=== PATIENT | female | born 1960 | race Caucasian/White ===

== ENCOUNTER 2017-09-28 08:22 | Day surgery (SDC) | payer MEDICARE, OTHER ==
[~2017-09-28] VITALS: Ht 157.5 cm; Wt 70.4 kg
[~2017-09-28 08:22] MED LIST: ALBU90OI6 INH; AMLO5 PO; ANACIN 400-321 EACH PO; ASPI81CH PO; ASPI81EC; ASPI81EC PO; ATARAX; BCOIRO PO; BENA20; BENA20 PO; BENAML10/5 PO; CALCA500CH; CALCAVITD PO; CALCIT950 PO; CEPH500 PO; CHOL10002 PO; CLIMARA; CYCL10; CYCL10 PO; CYPR4 PO; DIAZ5 PO; Desyrel50 MG PO; ELMIRON; ERGO50000 PO; ESTR1; ESTR25VT PV; ESTRTP; ESTRTP PV; ESTRTP VAG; Elmiron100 MG PO; FENO160 PO; Ferrous Sulfat324 MG PO; GABA100 PO; HYDACE5 PO; HYDACE7.5L PO; HYDCHL25 PO; HYDR1TAB94 PO; Hair, Skin & N1 EACH PO; IBUP800 PO; IRON150C PO; LIDO5TP TOP; LISI5 PO; MECL25 PO; METF500 PO; METF500C PO; METO25ER PO; METO50ER PO; MULVIT; MULVITMINE PO; Macrobid 100 M100 MG PO; NAPR500 PO; NIAC250ER PO; NIAC500 PO; Naprosyn500 MG PO; Norco 5-325 Ta1 EACH PO; OMEG1CAP30 PO; ONDA4 PO; ONDA4ODT MM; OXYACE7.5T PO; PRED10 PO; PROM25 PO; Pyridium100 MG PO; RANI150 PO; ROSU10TA PO; RXCYCL10 PO; RXHYDACE PO; RXONDA4ODT MM; SLOW FE142 MG PO; TRAZ50; TRAZ50 PO; ULTRACET; Ultram50 MG PO; VAGIFEM10 MCG; VAGIFEM10 MCG VG; VITAMIN D31 ML PO
[2018-01-25] MEDS ORDERED: Lotensin Hct 21 EAC1 PO (21:31)
[2018-01-25] MEDS ORDERED: Aspirin EC81 MG PO (21:32)
[2018-01-25] MEDS ORDERED: VITAMIN D22000 UNIT PO (21:33)
[2018-01-25] MEDS ORDERED: VITAMIN D50000 UNIT PO (21:33)
[2018-01-25] MEDS ORDERED: CEPH500 PO (21:35)
[2018-01-26] MEDS ORDERED: Zofran Odt4 MG SL (01:04)
[2018-03-27] MEDS ORDERED: METF500C PO (10:35)
[2018-03-27] MEDS ORDERED: FENO160 (10:35)
[2018-03-27] MEDS ORDERED: BENHYD1012 ×2 (10:36→10:37)
[2018-07-15] MEDS ORDERED: BENA20 PO (08:41)
[2018-07-15] MEDS ORDERED: Elemental Calc600 MG PO (08:43)
[2018-07-15] MEDS ORDERED: Ferrous Sulfat325 MG PO (08:45)
[2018-07-15] MEDS ORDERED: ACET500 PO (08:48)
[2018-07-15] MEDS ORDERED: Dyazide 37.5-21 EACH PO (08:50)
[2018-07-15] MEDS ORDERED: Mobic15 MG PO (08:51)
[2018-07-15] MEDS ORDERED: CALCIUM PO (08:55)
[2018-07-15] MEDS ORDERED: SLOW MAG PO (08:55)
== END 2017-09-28 14:10 | disposition home or self-care (01) ==
LOC: ORSCSDS 08:22
PROVIDERS: Podiatrist Foot & Ankle Surgery
PROC: 0SGQ04Z Fusion of Left Toe Phalangeal Joint with Internal Fixation Device, Open Approach (ICD-10-PCS; principal; 2017-09-28 10:40)
PROC: 0L8W0ZZ Division of Left Foot Tendon, Open Approach (ICD-10-PCS; principal; 2017-09-28 10:40)
DX: M20.40 Other hammer toe(s) (acquired), unspecified foot (principal); I10 Essential (primary) hypertension; E11.9 Type 2 diabetes mellitus without complications; Z79.899 Other long term (current) drug therapy; Z79.82 Long term (current) use of aspirin
CPT/HCPCS: 82947; C1713; J0171; J1100; J2250; J2405; J2765; J3010; J3370; J7120

== ENCOUNTER → 2018-01-24 | Outpatient (CLI) | payer MEDICARE, OTHER ==
[~2018-01-24] MED LIST changes: +Aspirin EC81 MG; +Lotensin Hct 21 EAC1; +VITAMIN D22000 UNIT PO; +VITAMIN D50000 UNIT PO; +Zofran Odt4 MG SL
[2018-01-24 11:18] LABS: Hematocrit 33.1 % (33.0-51.0); Hemoglobin 11.4 g/dL (11.5-16.0); Mean Corpuscular HGB 30.2 pg (26.0-34.0); Mean Corpuscular HGB Conc 34.4 g/dL (31.5-36.5); Mean Corpuscular Volume 88 fL (80-100); Mean Platelet Volume 9.7 fL (9.1-12.4); Platelet Count 392 K/mm3 (150-400); RDW Coefficient Variation 12.2 % (11.7-14.2); RDW Standard Deviation 39.5 fL (35.1-46.3); Red Blood Cell Count 3.77 M/mm3 (3.80-5.20); White Blood Cell Count 6.34 K/mm3 (4.00-11.30)
[2018-01-24 11:21] LABS: Bun/Creatinine Ratio 12.5 (12.0-20.0); Calcium, Blood 9.3 mg/dL (8.5-10.1); Creatinine, Blood 1.2 mg/dL (0.40-1.00); Potassium, Blood 3.6 mmol/L (3.5-5.5)
== END ==
LOC: LAB SHORT 11:09 → LAB EV 11:09
PROVIDERS: Nurse Practitioner Family
DX: N12 Tubulo-interstitial nephritis, not specified as acute or chronic (principal); R10.9 Unspecified abdominal pain
CPT/HCPCS: 80048; 83605; 85027; 87086

== ENCOUNTER → 2018-01-28 | Outpatient (CLI) | payer MEDICARE, OTHER ==
[2018-01-29 09:25] LABS: Adenovirus F 40/41 Not Detected (NOT DETECT); Astrovirus Not Detected (NOT DETECT); Campylobacter Sp Not Detected (NOT DETECT); Cryptosporidium Not Detected (NOT DETECT); Cyclospora Cayetanensis Not Detected (NOT DETECT); E. Coli O157 Not Detected (NOT DETECT); Entamoeba Histolytica Not Detected (NOT DETECT); Enteroaggregative E. coli-EAEC Not Detected (NOT DETECT); Enteropathogenic E. coli-EPEC Not Detected (NOT DETECT); Enterotoxigenic E. coli-ETEC Not Detected (NOT DETECT); Giardia Lamblia Not Detected (NOT DETECT); Norovirus GI/GII Not Detected (NOT DETECT); Plesiomonas Shigelloides Not Detected (NOT DETECT); Rotavirus A Not Detected (NOT DETECT); Salmonella Sp Not Detected (NOT DETECT); Sapovirus Not Detected (NOT DETECT); Shiga Toxin-prod E. coli-STEC Not Detected (NOT DETECT); Shigella/Enteroin E. coli-EIEC Not Detected (NOT DETECT); Vibrio Cholerae Not Detected (NOT DETECT); Vibrio Sp Not Detected (NOT DETECT); Yersinia Enterocolitica Not Detected (NOT DETECT)
== END ==
LOC: LAB EV 19:40
PROVIDERS: Nurse Practitioner Family
DX: R19.7 Diarrhea, unspecified (principal)
CPT/HCPCS: 87507

== ENCOUNTER 2018-02-04 05:48 | Emergency (ER) | payer MEDICARE, OTHER ==
[~2018-02-04] VITALS: Ht 157.5 cm; Wt 66.7 kg
[~2018-02-04 05:48] MED LIST changes: -Aspirin EC81 MG; +Aspirin EC81 MG PO; -Lotensin Hct 21 EAC1; +Lotensin Hct 21 EAC1 PO
[2018-02-04] MEDS ORDERED: Calcium Citrat250 MG PO (06:40)
[2018-02-04] MEDS ORDERED: [UNRECOGNIZED DRUG - OTHER] PO (06:42)
[2018-02-04] MEDS ORDERED: VAGIFEM10 MCG VAG (06:47)
[2018-02-04] MEDS ORDERED: TRAM50 PO (06:49)
[2018-02-04 07:31] LABS: Source, Urine Clean Catch
[2018-02-04 07:40] LABS: Bilirubin, Urine Neg (Neg); Blood, Urine 2+ (Neg); Glucose Qualitative, Urine Neg (Neg); Ketones, Urine Neg (Neg); Leukocyte Esterase, Urine 1+ (Neg); Nitrite, Urine Pos (Neg); Protein, Urine Neg (Neg); Urobilinogen, Urine NORM (Normal); pH, Urine 6.5 (5.0-8.0)
[2018-02-04 07:49] LABS: Appearance, Urine Clear (Clear); Color, Urine Yellow (P-Yellow)
[2018-02-04 07:53] LABS: Bacteria Few /hpf; Squamous Epithelial Cells Mod /hpf (Few)
[2018-02-04 07:55] LABS: Hyaline Casts Rare /lpf (0-2)
[2018-02-04 08:08] LABS: BASOPHILS ABSOLUTE AUTO 0.03 K/mm3 (0.00-0.23); BASOPHILS PERCENT AUTO 1 % (0-2); EOSINOPHILS ABSOLUTE AUTO 0.03 K/mm3 (0.00-0.68); EOSINOPHILS PERCENT AUTO 1 % (0-6); Hematocrit 30.8 % (33.0-51.0); Hemoglobin 10.5 g/dL (11.5-16.0); IMMATURE GRAN ABSOLUTE AUTO 0.01 K/mm3 (0.00-0.10); IMMATURE GRAN PERCENT AUTO 0 % (0-1); LYMPHOCYTES ABSOLUTE AUTO 1.63 K/mm3 (0.84-5.20); LYMPHOCYTES PERCENT AUTO 28 % (21-46); MONOCYTES PERCENT AUTO 9 % (4-13); Mean Corpuscular HGB 30.1 pg (26.0-34.0); Mean Corpuscular HGB Conc 34.1 g/dL (31.5-36.5); Mean Corpuscular Volume 88 fL (80-100); NEUTROPHILS ABSOLUTE AUTO 3.67 K/mm3 (1.96-9.15); NEUTROPHILS PERCENT AUTO 63 % (41-73); Platelet Count 294 K/mm3 (150-400); RDW Coefficient Variation 12.3 % (11.7-14.2); RDW Standard Deviation 39.4 fL (35.1-46.3); Red Blood Cell Count 3.49 M/mm3 (3.80-5.20); White Blood Cell Count 5.87 K/mm3 (4.00-11.30)
[2018-02-04 08:24] LABS: Alanine Aminotransfer (ALT/SGP 22 U/L (12-78); Albumin, Blood 3.4 g/dL (3.4-5.0); Alk Phos 104 U/L (50-136); Anion Gap 9 mmol/L (6-16); Aspartate Aminotrans (AST/SGOT 17 U/L (12-37); Bilirubin, Total 0.3 mg/dL (0.1-1.0); Blood Urea Nitrogen 18 mg/dL (8-24); Bun/Creatinine Ratio 19.5 (12.0-20.0); CO2, Blood 27 mmol/L (21-32); Calcium, Blood 8.9 mg/dL (8.5-10.1); Chloride, Blood 105 mmol/L (98-108); Creatinine, Blood 0.93 mg/dL (0.40-1.00); Globulin, Blood 3.5 g/dL (2.2-4.0); Glomerular Filtration Rate >60 (60-); Glucose, Blood 102 mg/dL (70-99); Potassium, Blood 3.7 mmol/L (3.5-5.5); Sodium, Blood 141 mmol/L (136-145); Total Protein, Blood 6.9 g/dL (6.4-8.2)
[2018-02-04 09:43] LABS: Source, Urine Catheter
[2018-02-04 09:57] LABS: Bilirubin, Urine Neg (Neg); Blood, Urine 1+ (Neg); Glucose Qualitative, Urine Neg (Neg); Ketones, Urine Neg (Neg); Leukocyte Esterase, Urine Neg (Neg); Nitrite, Urine Neg (Neg); Protein, Urine Neg (Neg); Specific Gravity, Urine 1.005 (1.003-1.022); Urobilinogen, Urine NORM (Normal)
[2018-02-04 10:08] LABS: Appearance, Urine Clear (Clear); Color, Urine Pale Yellow (P-Yellow)
[2018-02-04 10:12] LABS: White Blood Cells, Urine 0-2 /hpf (0-5)
[2018-02-04 10:13] LABS: Bacteria Rare /hpf; Squamous Epithelial Cells Rare /hpf (Few)
== END 2018-02-04 10:52 | disposition home or self-care (01) ==
LOC: ER 05:48
PROVIDERS: Emergency Medicine
DX: K85.90 Acute pancreatitis without necrosis or infection, unspecified (principal); I10 Essential (primary) hypertension; E78.00 Pure hypercholesterolemia, unspecified; Z79.899 Other long term (current) drug therapy
CPT/HCPCS: 36415; 51701; 80053; 81001; 83690; 85025; 87086; 96361; 96374; 99283; J2550; J7120

== ENCOUNTER 2018-02-09 15:00 | Emergency (ER) | payer MEDICARE, OTHER ==
[~2018-02-09] VITALS: Ht 157.5 cm; Wt 68.0 kg
[~2018-02-09 15:00] MED LIST changes: +Calcium Citrat250 MG PO; +TRAM50 PO; +VAGIFEM10 MCG VAG; +[UNRECOGNIZED DRUG - OTHER] PO
== END 2018-02-09 18:04 | disposition home or self-care (01) ==
LOC: ER 15:00
DX: R11.2 Nausea with vomiting, unspecified (principal); R10.9 Unspecified abdominal pain; I10 Essential (primary) hypertension; E11.9 Type 2 diabetes mellitus without complications; E78.00 Pure hypercholesterolemia, unspecified; Z88.2 Allergy status to sulfonamides; Z88.5 Allergy status to narcotic agent; Z88.0 Allergy status to penicillin; Z91.048 Other nonmedicinal substance allergy status; Z91.02 Food additives allergy status; Z88.8 Allergy status to other drugs, medicaments and biological substances; Z88.1 Allergy status to other antibiotic agents; Z91.010 Allergy to peanuts; Z79.899 Other long term (current) drug therapy; Z79.82 Long term (current) use of aspirin
CPT/HCPCS: 36415; 96361; 96374; 96375; 99283; J1885; J2405; J7030

== ENCOUNTER 2018-02-11 13:19 | Day surgery (SDC) | payer MEDICARE, OTHER | END 2018-02-11 15:42 | disposition home or self-care (01) | LOC: ATC 13:19 | DX: R11.2 Nausea with vomiting, unspecified (principal); I10 Essential (primary) hypertension; E78.00 Pure hypercholesterolemia, unspecified; E11.9 Type 2 diabetes mellitus without complications | CPT/HCPCS: 96360; J7030 ==

== ENCOUNTER 2018-02-12 00:29 | Day surgery (SDC) | payer MEDICARE, OTHER ==
[2018-02-13] MEDS ORDERED: HYDCHL25 PO (14:09)
== END 2018-02-12 15:07 | disposition home or self-care (01) ==
LOC: ATC 00:29
DX: R11.2 Nausea with vomiting, unspecified (principal); I10 Essential (primary) hypertension; E78.00 Pure hypercholesterolemia, unspecified; E11.9 Type 2 diabetes mellitus without complications
CPT/HCPCS: 96360; J7030

== ENCOUNTER 2018-02-13 00:26 | Day surgery (SDC) | payer MEDICARE, OTHER ==
[2018-02-13] MEDS ORDERED: HYDCHL25 PO (14:09)
== END 2018-02-13 15:25 | disposition home or self-care (01) ==
LOC: ATC 00:26
DX: R11.2 Nausea with vomiting, unspecified (principal); I10 Essential (primary) hypertension; E11.9 Type 2 diabetes mellitus without complications; E78.00 Pure hypercholesterolemia, unspecified
CPT/HCPCS: 96360; J7030

== ENCOUNTER → 2018-02-14 | Outpatient (CLI) | payer MEDICARE, OTHER ==
[2018-02-15 11:27] LABS: Antinuclear Antibody Screen Negative (Negative)
[2018-02-15 14:48] LABS: Rheumatoid Factor, Serum Negative (Negative)
== END | disposition home or self-care (01) ==
LOC: LAB EV 16:50 → LAB SHORT 16:50
PROVIDERS: Family Medicine
DX: M33.20 Polymyositis, organ involvement unspecified (principal); M19.90 Unspecified osteoarthritis, unspecified site
CPT/HCPCS: 82550; 85651; 86038; 86140; 86430

== ENCOUNTER → 2018-03-07 | Outpatient (CLI) | payer MEDICARE, OTHER | END | disposition home or self-care (01) | LOC: LAB EV 11:59 → LAB SHORT 11:59 | DX: N39.0 Urinary tract infection, site not specified (principal) | CPT/HCPCS: 87086 ==

== ENCOUNTER → 2018-09-26 | Outpatient (CLI) | payer MEDICARE, OTHER ==
[~2018-09-26] MED LIST changes: +ACET500 PO; +BENHYD1012; +CALCIUM PO; +Dyazide 37.5-21 EACH PO; +Elemental Calc600 MG PO; +FENO160; +Ferrous Sulfat325 MG PO; +Mobic15 MG PO; +SLOW MAG PO
== END ==
LOC: LAB SHORT 14:02 → LAB EV 14:02
DX: N39.0 Urinary tract infection, site not specified (principal)
CPT/HCPCS: 87086

== ENCOUNTER → 2018-10-05 | Outpatient (CLI) | payer MEDICARE, OTHER ==
[2018-10-05 13:28] LABS: BASOPHILS ABSOLUTE AUTO 0.03 K/mm3 (0.00-0.23); BASOPHILS PERCENT AUTO 1 % (0-2); EOSINOPHILS ABSOLUTE AUTO 0.02 K/mm3 (0.00-0.68); EOSINOPHILS PERCENT AUTO 0 % (0-6); Hematocrit 32.3 % (33.0-51.0); Hemoglobin 10.9 g/dL (11.5-16.0); IMMATURE GRAN ABSOLUTE AUTO 0.01 K/mm3 (0.00-0.10); IMMATURE GRAN PERCENT AUTO 0 % (0-1); LYMPHOCYTES ABSOLUTE AUTO 2.08 K/mm3 (0.84-5.20); LYMPHOCYTES PERCENT AUTO 36 % (21-46); MONOCYTES ABSOLUTE AUTO 0.46 K/mm3 (0.16-1.47); MONOCYTES PERCENT AUTO 8 % (4-13); Mean Corpuscular HGB 29.6 pg (26.0-34.0); Mean Corpuscular HGB Conc 33.7 g/dL (31.5-36.5); Mean Corpuscular Volume 88 fL (80-100); Mean Platelet Volume 9.6 fL (9.1-12.4); NEUTROPHILS ABSOLUTE AUTO 3.13 K/mm3 (1.96-9.15); NEUTROPHILS PERCENT AUTO 55 % (41-73); Platelet Count 329 K/mm3 (150-400); RDW Coefficient Variation 11.6 % (11.7-14.2); RDW Standard Deviation 37.1 fL (35.1-46.3); Red Blood Cell Count 3.68 M/mm3 (3.80-5.20); White Blood Cell Count 5.73 K/mm3 (4.00-11.30)
[2018-10-05 13:41] LABS: Albumin, Blood 3.4 g/dL (3.4-5.0); Albumin/Globulin Ratio 0.9 (0.8-1.8); Bilirubin, Total 0.4 mg/dL (0.1-1.0); Calcium, Blood 8.7 mg/dL (8.5-10.1); Magnesium, Blood 1.5 mg/dL (1.6-2.4); Potassium, Blood 3.8 mmol/L (3.5-5.5); Total Protein, Blood 7.4 g/dL (6.4-8.2)
[2018-10-05 15:25] LABS: Bacteria Not Seen /hpf; Red Blood Cells, Urine Not Seen /hpf (0-2); Squamous Epithelial Cells Few /hpf (Few); Transitional Epithelial Cells Few /hpf (0-Rare); White Blood Cells, Urine Not Seen /hpf (0-5)
[2018-10-05 16:14] LABS: Percent Saturation 8.6 % (15.0-50.0)
== END | disposition home or self-care (01) ==
LOC: LAB EV 13:23 → LAB SHORT 13:23
PROVIDERS: General Practice
DX: D50.9 Iron deficiency anemia, unspecified (principal); E61.2 Magnesium deficiency; R53.81 Other malaise; R30.0 Dysuria
CPT/HCPCS: 80053; 81015; 82728; 83540; 83550; 83735; 85025; 87086

== ENCOUNTER 2019-07-24 10:49 | Emergency (ER) | payer MEDICARE, OTHER ==
[~2019-07-24] VITALS: Ht 157.5 cm; Wt 63.5 kg
[2019-07-24] MEDS ORDERED: HYDR1TAB94 PO (12:11)
== END 2019-07-24 12:25 | disposition home or self-care (01) ==
LOC: ER 10:49
DX: M76.822 Posterior tibial tendinitis, left leg (principal); I10 Essential (primary) hypertension; E78.00 Pure hypercholesterolemia, unspecified; Z88.0 Allergy status to penicillin; Z88.2 Allergy status to sulfonamides; Z88.5 Allergy status to narcotic agent; Z79.899 Other long term (current) drug therapy
CPT/HCPCS: 73700; 99283-25

== ENCOUNTER 2020-05-21 06:10 | Day surgery (SDC) | payer MEDICARE, OTHER ==
[~2020-05-21] VITALS: Ht 160 cm; Wt 65.6 kg
[~2020-05-21 06:10] MED LIST changes: +FOLI1 PO; +METTREX2.5 PO; +MYRBETRIQ25 MG PO
[2020-05-21] MEDS ORDERED: ESCI10 PO (07:16)
== END 2020-05-21 10:07 | disposition home or self-care (01) ==
LOC: ORSCSDS 06:10
PROVIDERS: Podiatrist Foot & Ankle Surgery
PROC: 0QBP0ZZ Excision of Left Metatarsal, Open Approach (ICD-10-PCS; principal; 2020-05-21 07:30)
PROC: 0QSP04Z Reposition Left Metatarsal with Internal Fixation Device, Open Approach (ICD-10-PCS; principal; 2020-05-21 07:30)
DX: M20.12 Hallux valgus (acquired), left foot (principal); M21.612 Bunion of left foot; M20.62 Acquired deformities of toe(s), unspecified, left foot; I10 Essential (primary) hypertension; E78.5 Hyperlipidemia, unspecified; E11.9 Type 2 diabetes mellitus without complications; Z79.84 Long term (current) use of oral hypoglycemic drugs; Z79.899 Other long term (current) drug therapy; Z79.82 Long term (current) use of aspirin
CPT/HCPCS: 82947; C1713; C1769; J0171; J0690; J1100; J1885; J2250; J2405; J2704; J3010; J7120

== ENCOUNTER → 2020-07-07 | Outpatient (CLI) | payer MEDICARE, OTHER ==
[~2020-07-07] MED LIST changes: +ESCI10 PO
== END | disposition home or self-care (01) ==
LOC: LAB SHORT 11:07 → LAB EV 11:07
DX: N30.01 Acute cystitis with hematuria (principal)
CPT/HCPCS: 87077; 87086; 87186

== ENCOUNTER → 2020-09-10 | Outpatient (CLI) | payer MEDICARE, OTHER ==
[~2020-09-10] MED LIST changes: +CREON DR 3,0001 EACH PO; +DICLOFENAC SOD100 G1 TP; +Rapaflo4 MG PO
== END | disposition home or self-care (01) ==
LOC: LAB EV 15:54 → LAB SHORT 15:54
DX: N39.0 Urinary tract infection, site not specified (principal)
CPT/HCPCS: 87077; 87086; 87186

== ENCOUNTER 2020-10-01 09:36 | Day surgery (SDC) | payer MEDICARE, OTHER ==
[~2020-10-01] VITALS: Ht 157.5 cm; Wt 67.0 kg
[~2020-10-01 09:36] MED LIST changes: -CREON DR 3,0001 EACH PO; -DICLOFENAC SOD100 G1 TP; -Rapaflo4 MG PO
[2020-10-01] MEDS ORDERED: DICLOFENAC SOD100 G1 TP (10:48)
[2020-10-01] MEDS ORDERED: CREON DR 3,0001 EACH PO (10:48)
[2020-10-01] MEDS ORDERED: FENO160 PO (10:48)
[2020-10-01] MEDS ORDERED: Rapaflo4 MG PO (10:49)
--- NOTE | 2020-10-01 11:26 | NUR ---
10/01/20 1126 Ena Pierre BUPIVACAINE 0.5% MIXED WITH EPI 0.15MG TO CONSTITUTE BUPIVACAINE 0.5% W/ EPI 1:200,000 PER PHYSICIAN ORDERS. 30ML INJECTED BY PHYSICIAN DURING PROCEDURE
== END 2020-10-01 12:52 | disposition home or self-care (01) ==
LOC: ORSCSDS 09:36
PROVIDERS: Podiatrist Foot & Ankle Surgery
PROC: 0QBP0ZZ Excision of Left Metatarsal, Open Approach (ICD-10-PCS; principal; 2020-10-01 11:00)
DX: M21.962 Unspecified acquired deformity of left lower leg (principal); M19.072 Primary osteoarthritis, left ankle and foot; E11.9 Type 2 diabetes mellitus without complications; E78.1 Pure hyperglyceridemia; E78.5 Hyperlipidemia, unspecified; I10 Essential (primary) hypertension; Z79.82 Long term (current) use of aspirin; Z79.84 Long term (current) use of oral hypoglycemic drugs; Z79.899 Other long term (current) drug therapy
CPT/HCPCS: 82947; A9270; J0171; J1100; J2250; J2405; J3010; J3370; J7120

== ENCOUNTER → 2020-10-20 | Outpatient (CLI) | payer MEDICARE, OTHER ==
[~2020-10-20] MED LIST changes: +CREON DR 3,0001 EACH PO; +DICLOFENAC SOD100 G1 TP; +Rapaflo4 MG PO
[2020-10-20 16:41] LABS: Source, Urine Clean Catch
[2020-10-20 18:00] LABS: Appearance, Urine Clear (Clear); Bilirubin, Urine Neg (Neg); Blood, Urine 2+ (Neg); Color, Urine Yellow (P-Yellow); Glucose Qualitative, Urine Neg (Neg); Ketones, Urine Neg (Neg); Leukocyte Esterase, Urine 2+ (Neg); Nitrite, Urine Neg (Neg); Protein, Urine Neg (Neg); Urobilinogen, Urine NORM (Normal)
[2020-10-20 18:32] LABS: Bacteria Few /hpf; Mucus Mod (0-Heavy); Red Blood Cells, Urine 0-2 /hpf (0-2); Squamous Epithelial Cells Rare /hpf (Few)
== END | disposition home or self-care (01) ==
LOC: LAB SHORT 16:22 → OLS 16:22
PROVIDERS: Internal Medicine
DX: R35.0 Frequency of micturition (principal)
CPT/HCPCS: 81001; 87086

== ENCOUNTER 2021-02-06 06:46 | Emergency (ER) | payer MEDICARE, OTHER ==
[~2021-02-06] VITALS: Ht 160 cm; Wt 67.1 kg
[2021-02-06 07:47] LABS: Alanine Aminotransfer (ALT/SGP 33 U/L (12-78); Albumin, Blood 3.7 g/dL (3.4-5.0); Albumin/Globulin Ratio 1.2 (0.8-1.8); Alk Phos 117 U/L (50-136); Anion Gap 4 mmol/L (6-16); Aspartate Aminotrans (AST/SGOT 24 U/L (12-37); Bilirubin, Total 0.4 mg/dL (0.1-1.0); Blood Urea Nitrogen 17 mg/dL (8-24); Bun/Creatinine Ratio 23.4 (12.0-20.0); CO2, Blood 27 mmol/L (21-32); Calcium, Blood 8.7 mg/dL (8.5-10.1); Chloride, Blood 107 mmol/L (98-108); Creatinine, Blood 0.73 mg/dL (0.40-1.00); Globulin, Blood 3.2 g/dL (2.2-4.0); Glomerular Filtration Rate >60 (60-); Glucose, Blood 92 mg/dL (70-99); Potassium, Blood 3.7 mmol/L (3.5-5.5); Sodium, Blood 138 mmol/L (136-145); Total Protein, Blood 6.9 g/dL (6.4-8.2); Troponin I <0.015 ng/mL (0.000-0.040)
[2021-02-06 08:14] LABS: BASOPHILS ABSOLUTE AUTO 0.06 K/mm3 (0.00-0.23); BASOPHILS PERCENT AUTO 1 % (0-2); EOSINOPHILS ABSOLUTE AUTO 0.09 K/mm3 (0.00-0.68); EOSINOPHILS PERCENT AUTO 2 % (0-6); Hemoglobin 12.8 g/dL (11.5-16.0); IMMATURE GRAN ABSOLUTE AUTO 0.01 K/mm3 (0.00-0.10); IMMATURE GRAN PERCENT AUTO 0 % (0-1); LYMPHOCYTES ABSOLUTE AUTO 1.74 K/mm3 (0.84-5.20); LYMPHOCYTES PERCENT AUTO 42 % (21-46); MONOCYTES PERCENT AUTO 7 % (4-13); Mean Corpuscular HGB 30.5 pg (26.0-34.0); Mean Corpuscular HGB Conc 32.8 g/dL (31.5-36.5); Mean Corpuscular Volume 93 fL (80-100); Mean Platelet Volume 10.6 fL (9.1-12.4); NEUTROPHILS ABSOLUTE AUTO 1.95 K/mm3 (1.96-9.15); NEUTROPHILS PERCENT AUTO 47 % (41-73); Platelet Count 264 K/mm3 (150-400); White Blood Cell Count 4.15 K/mm3 (4.00-11.30)
== END 2021-02-06 09:15 | disposition home or self-care (01) ==
LOC: ER 06:46
PROVIDERS: Emergency Medicine
DX: M94.0 Chondrocostal junction syndrome [Tietze] (principal)
CPT/HCPCS: 36415; 71046; 80053; 84484; 85025; 93005; 93010; 96374; 99285-25; J1885

== ENCOUNTER 2022-03-19 09:45 | Emergency (ER) | payer MEDICARE, OTHER ==
[~2022-03-19] VITALS: Ht 160 cm; Wt 65.8 kg
[2022-03-19] MEDS ORDERED: Norco 5-325 Ta1 EACH PO (10:59)
== END 2022-03-19 11:20 | disposition home or self-care (01) ==
LOC: ER 09:45
DX: S93.402A Sprain of unspecified ligament of left ankle, initial encounter (principal); I10 Essential (primary) hypertension; X50.1XXA Overexertion from prolonged static or awkward postures, initial encounter; Z79.899 Other long term (current) drug therapy; Z79.82 Long term (current) use of aspirin; Z79.84 Long term (current) use of oral hypoglycemic drugs
CPT/HCPCS: 73610

== ENCOUNTER → 2022-07-18 | Outpatient (CLI) | payer MEDICARE, OTHER | END | disposition home or self-care (01) | LOC: LAB SHORT 11:50 → LAB 11:50 | DX: N39.0 Urinary tract infection, site not specified (principal) | CPT/HCPCS: 87077; 87086; 87186 ==

== ENCOUNTER → 2022-11-09 | Outpatient (CLI) | payer MEDICARE, OTHER | END | disposition home or self-care (01) | LOC: LAB SHORT 08:50 → LAB 08:50 | DX: R30.0 Dysuria (principal) | CPT/HCPCS: 87086 ==

== ENCOUNTER → 2022-11-17 | Outpatient (CLI) | payer MEDICARE, OTHER ==
[2022-11-17 11:56] LABS: Source, Urine Clean Catch
[2022-11-17 12:13] LABS: Bacteria Not Seen /hpf; Red Blood Cells, Urine 0-2 /hpf (0-2); Squamous Epithelial Cells Many /hpf (Few); White Blood Cells, Urine 0-2 /hpf (0-5)
== END | disposition home or self-care (01) ==
LOC: LAB SHORT 11:53 → LAB 11:53
PROVIDERS: Emergency Medicine
DX: N30.10 Interstitial cystitis (chronic) without hematuria (principal)
CPT/HCPCS: 81015

== ENCOUNTER → 2023-04-19 | Outpatient (CLI) | payer MEDICARE, OTHER | LOC: LAB SHORT 13:38 → LAB 13:38 | DX: R30.0 Dysuria (principal) | CPT/HCPCS: 87086 ==

== ENCOUNTER → 2024-04-17 | Outpatient (CLI) | payer MEDICARE, OTHER | LOC: LAB SHORT 11:09 → LAB 11:09 | DX: R82.998 Other abnormal findings in urine (principal) | CPT/HCPCS: 87086 ==

== ENCOUNTER → 2024-05-21 | Outpatient (CLI) | payer MEDICARE, OTHER ==
[2024-05-21 13:17] LABS: BASOPHILS ABSOLUTE AUTO 0.05 K/mm3 (0.00-0.23); BASOPHILS PERCENT AUTO 1 % (0-2); EOSINOPHILS ABSOLUTE AUTO 0.05 K/mm3 (0.00-0.68); EOSINOPHILS PERCENT AUTO 1 % (0-6); IMMATURE GRAN ABSOLUTE AUTO 0.01 K/mm3 (0.00-0.10); IMMATURE GRAN PERCENT AUTO 0 % (0-1); LYMPHOCYTES ABSOLUTE AUTO 1.85 K/mm3 (0.84-5.20); LYMPHOCYTES PERCENT AUTO 40 % (21-46); MONOCYTES ABSOLUTE AUTO 0.36 K/mm3 (0.16-1.47); MONOCYTES PERCENT AUTO 8 % (4-13); Mean Corpuscular HGB 31.7 pg (26.0-34.0); Mean Corpuscular HGB Conc 34.2 g/dL (31.5-36.5); Mean Corpuscular Volume 93 fL (80-100); Mean Platelet Volume 10.4 fL (9.1-12.4); NEUTROPHILS ABSOLUTE AUTO 2.31 K/mm3 (1.96-9.15); NEUTROPHILS PERCENT AUTO 50 % (41-73); Platelet Count 260 K/mm3 (150-400); RDW Coefficient Variation 12.4 % (11.7-14.2); RDW Standard Deviation 41.4 fL (35.1-46.3); White Blood Cell Count 4.63 K/mm3 (4.00-11.30)
== END | disposition home or self-care (01) ==
LOC: LAB SHORT 13:13 → LAB 13:13
PROVIDERS: Family Medicine
DX: R53.83 Other fatigue (principal)
CPT/HCPCS: 84484; 85025; 85379

== ENCOUNTER → 2024-05-21 | Outpatient (CLI) | payer MEDICARE, OTHER | END | disposition home or self-care (01) | LOC: LAB 15:30 → LAB SHORT 15:30 | DX: N39.0 Urinary tract infection, site not specified (principal) | CPT/HCPCS: 87077; 87086; 87186 ==

== ENCOUNTER → 2024-10-24 | Outpatient (CLI) | payer MEDICARE, OTHER ==
[2024-10-24 12:44] LABS: Bacterial Vaginosis PCR Negative (NEGATIVE); Candida Group, PCR NOT DETECTED (NOT DETECT); Candida glabrata-krusei, PCR NOT DETECTED (NOT DETECT)
== END ==
LOC: LAB 09:34 → LAB SHORT 09:34
DX: N89.8 Other specified noninflammatory disorders of vagina (principal); R30.0 Dysuria
CPT/HCPCS: 81515; 87086

== ENCOUNTER 2025-04-24 15:21 | Inpatient (IN) | payer MEDICARE, OTHER ==
[2025-04-24] VITALS (12 sets, daily range): BP systolic 94–145; BP diastolic 56–91
[~2025-04-24] VITALS: Ht 160 cm; Wt 71.8 kg
[~2025-04-24 15:21] MED LIST changes: -Crestor40 MG PO; -PANT40 PO; -TICA90TA PO
[2025-04-24] MEDS ORDERED: Heparin Sodium 5000 Units/ML 1ML MDV IV ONE (15:25)
[2025-04-24] MEDS ORDERED: Verapamil HCL 2.5 MG/ML 2ML Injection ONE (15:30)
[2025-04-24] MEDS ORDERED: NS 2,000 ML IV ONE (15:31)
[2025-04-24] MEDS ORDERED: Nitroglycerin 2 MG/20 ML BTL ONE (15:31)
[2025-04-24] MEDS ORDERED: Heparin Sodium 1000 Units/ML 10ML MDV ONE (15:31)
[2025-04-24] MEDS ORDERED: FentaNYL Citrate 50 MCG/ML 2 ML Injection ONE (15:32)
[2025-04-24] MEDS ORDERED: Midazolam HCl 1MG / ML 2ML Vial ONE (15:32)
[2025-04-24] MEDS ORDERED: NS 250 ML IV ONE (15:32)
[2025-04-24 15:38] LABS: Calcium, Ionized (POC) 1.22 mmol/L (1.10-1.46); Chloride (POC) 103 mmol/L (98-108); Creatinine (POC) 1.0 mg/dL (0.6-1.0); Glucose (ISTAT POC) 184 mg/dL (70-99); Hematocrit (POC) 39.0 % (36.0-46.0); Hemoglobin (POC) 13.3 g/dL (12.0-16.0); Potassium (POC) 3.7 mmol/L (3.5-5.5); Sodium (POC) 141 mmol/L (135-148); Total CO2 (POC) 26 mmol/L (21-32)
[2025-04-24 15:44] LABS: BASOPHILS ABSOLUTE AUTO 0.04 K/mm3 (0.00-0.23); BASOPHILS PERCENT AUTO 0 % (0-2); EOSINOPHILS ABSOLUTE AUTO 0.03 K/mm3 (0.00-0.68); EOSINOPHILS PERCENT AUTO 0 % (0-6); Hematocrit 39.9 % (33.0-51.0); Hemoglobin 13.4 g/dL (11.5-16.0); IMMATURE GRAN ABSOLUTE AUTO 0.03 K/mm3 (0.00-0.10); IMMATURE GRAN PERCENT AUTO 0 % (0-1); LYMPHOCYTES ABSOLUTE AUTO 1.98 K/mm3 (0.84-5.20); LYMPHOCYTES PERCENT AUTO 15 % (21-46); MONOCYTES ABSOLUTE AUTO 0.78 K/mm3 (0.16-1.47); MONOCYTES PERCENT AUTO 6 % (4-13); Mean Corpuscular HGB Conc 33.6 g/dL (31.5-36.5); Mean Corpuscular Volume 94 fL (80-100); NEUTROPHILS ABSOLUTE AUTO 10.16 K/mm3 (1.96-9.15); NEUTROPHILS PERCENT AUTO 78 % (41-73); NRBC ABSOLUTE 0.00 K/mm3 (0.00-0.02); NRBC Auto 0.0 /100 WBC (0.0-0.2); Platelet Count 262 K/mm3 (150-400); RDW Coefficient Variation 12.5 % (11.7-14.2); RDW Standard Deviation 43.3 fL (35.1-46.3)
[2025-04-24] MEDS ORDERED: NS 100 ML IV ONE (15:52)
[2025-04-24] MEDS ORDERED: Ondansetron HCl 2 MG / ML 2ML Vial ONE (15:57)
[2025-04-24] MEDS ORDERED: ADENOSINE ONE (16:06)
[2025-04-24 16:08] LABS: Alanine Aminotransfer (ALT/SGP 23 U/L (12-78); Albumin, Blood 3.7 g/dL (3.4-5.0); Albumin/Globulin Ratio 1.2 (0.8-1.8); Anion Gap 10 mmol/L (3-11); Aspartate Aminotrans (AST/SGOT 17 U/L (12-37); Bilirubin, Total 0.6 mg/dL (0.1-1.0); Blood Urea Nitrogen 26 mg/dL (8-24); CHOL/HDL RATIO 3.8; CO2, Blood 29 mmol/L (21-32); Calcium, Blood 9.3 mg/dL (8.5-10.1); Chloride, Blood 105 mmol/L (98-108); Cholesterol 188 mg/dL (50-200); Creatinine, Blood 0.85 mg/dL (0.40-1.00); Globulin, Blood 3.1 g/dL (2.2-4.0); Glucose, Blood 184 mg/dL (70-99); HDL Cholesterol 50 mg/dL (>39); LDL/HDL RATIO 1.9; Low Density Lipoprotein Chol 94 mg/dL (0-110); Magnesium, Blood 1.6 mg/dL (1.6-2.4); Potassium, Blood 3.8 mmol/L (3.5-5.5); Sodium, Blood 140 mmol/L (136-145); Total Protein, Blood 6.8 g/dL (6.4-8.2); Triglycerides 222 mg/dL (30-160); Very Low Density Lipoprot Chol 44 mg/dL (6-32)
[2025-04-24] MEDS ORDERED: NS 1,000 ML IV ONE (16:34)
[2025-04-24] MEDS ORDERED: NS 1,000 ML IV SCH (17:00)
--- NOTE | 2025-04-24 18:22 | NUR ---
Admission/Shift Summary: Patient arrived to ICU rm 100 at approx 1600, accompanied by x2 HC RN's. Patient a/o x4. Denies any chest pain, or dyspnea/SOB. Heart rhythm showed sinus torres in the high 40's upon arrival, but has since improved to the 60's. BP and all other VS stable, on RA. Peripheral IV's x2 patent and intact. TR band with 9ml of air in place to rt radial. Radial site wnl, no s/s of bleeding or hematoma. Tolerated transfer to toilet with [id number] without difficulty. Call light in reach, makes needs known. Will continue to monitor until report to NOC shift RN.
--- NOTE | 2025-04-24 20:52 | NUR ---
PT HAS HAD 3 RUNS OF VTACH RANGING FROM 5-[address] SWANSON WAS NOTIFIED. HE SAID THAT IF PT HAS ANOTHER EPISODE TO GIVE AN AMIODARONE BOLUS AND START AN AMIODARONE INFUSION.
[2025-04-24] MEDS ORDERED: Magnesium Sulfate 500 MG / ML 2ML Vial IV ONE (20:54)
[2025-04-24] MEDS ORDERED: Heparin Sodium,Porcine 5,000 UNIT/0.5 ML SDV SC ONE (20:54)
[2025-04-25] VITALS (16 sets, daily range): BP systolic 115–139; BP diastolic 66–88
--- NOTE | 2025-04-25 00:04 | NUR ---
TR BAND REMOVED PER PROTOCOL. PT TOLERATED WELL, NO BLEEDING/HEMATOMA/BRUISING NOTED. TEGADERM APPLIED.
--- NOTE | 2025-04-25 00:47 | NUR ---
PT STATES THAT SHE HAS SOME STERNAL SORENESS, SHE STATES IT DOES NOT FEEL AT ALL LIKE HER CHEST PAIN EARLIER. SHE HAS NO N/V, DIAPHORESIS, DIZZINESS OR WEAKNESS. NO CHANGE TO CARDIAC RHYTHM AND BP REMAINS WNL. DR MARTINEZ NOTIFIED. SEE EMAR
[2025-04-25] MEDS ORDERED: HYDROcodone 5-APAP 325 TAB PO ONE (00:50)
[2025-04-25 03:43] LABS: BASOPHILS ABSOLUTE AUTO 0.04 K/mm3 (0.00-0.23); BASOPHILS PERCENT AUTO 0 % (0-2); EOSINOPHILS ABSOLUTE AUTO 0.03 K/mm3 (0.00-0.68); EOSINOPHILS PERCENT AUTO 0 % (0-6); Hematocrit 33.9 % (33.0-51.0); Hemoglobin 11.6 g/dL (11.5-16.0); IMMATURE GRAN ABSOLUTE AUTO 0.03 K/mm3 (0.00-0.10); IMMATURE GRAN PERCENT AUTO 0 % (0-1); LYMPHOCYTES ABSOLUTE AUTO 1.75 K/mm3 (0.84-5.20); LYMPHOCYTES PERCENT AUTO 16 % (21-46); MONOCYTES ABSOLUTE AUTO 0.98 K/mm3 (0.16-1.47); MONOCYTES PERCENT AUTO 9 % (4-13); Mean Corpuscular HGB Conc 34.2 g/dL (31.5-36.5); Mean Corpuscular Volume 93 fL (80-100); NEUTROPHILS ABSOLUTE AUTO 7.91 K/mm3 (1.96-9.15); NEUTROPHILS PERCENT AUTO 74 % (41-73); NRBC ABSOLUTE 0.00 K/mm3 (0.00-0.02); NRBC Auto 0.0 /100 WBC (0.0-0.2); Platelet Count 202 K/mm3 (150-400); RDW Coefficient Variation 12.8 % (11.7-14.2); RDW Standard Deviation 43.7 fL (35.1-46.3)
[2025-04-25 04:03] LABS: Anion Gap 7.0 mmol/L (3-11); Blood Urea Nitrogen 22.0 mg/dL (8-24); CO2, Blood 27.0 mmol/L (21-32); Calcium, Blood 8.4 mg/dL (8.5-10.1); Chloride, Blood 104.0 mmol/L (98-108); Creatinine, Blood 0.74 mg/dL (0.40-1.00); Glucose, Blood 120.0 mg/dL (70-99); Potassium, Blood 3.3 mmol/L (3.5-5.5); Sodium, Blood 135.0 mmol/L (136-145)
--- NOTE | 2025-04-25 05:28 | NUR ---
SHIFT SUMMERY PT HAS BEEN ALERT AND ORIENTED X 4, SHE HAS BEEN AMBULATORY TO BEDSIDE COMMODE W/MINIMAL ASSISTANCE. 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 BP HAS BEEN WNL. AFEBRILE. SEE PRIOR NOTES FOR OVERNIGHT OCCURANCES. PT HAS REMAINED HEMODYNAMICALLY STABLE THIS SHIFT.
--- NOTE | 2025-04-25 07:24 | NUR ---
ASSUMPTION OF CARE: PATIENT IS ALERT AND ORIENTED X 4 PLEASANT, COOPERATIVE ABLE TO MAKE NEEDS KNOWN, DENIES WORSENING CHEST PAIN, DID HAVE SOME CHEST SORENESS THROUGH THE NIGHT, NIGHT TREATED WITH PRN NORCO, WITH MUCH IMPROVEMENT, STILL ENDORSES MILD SORENESS /. VSS AFEBRILE, NO VTACH FOR THIS RN, PLAN FOR ECHO.
[2025-04-25] MEDS ORDERED: Insulin Regular 100 UNIT/ML 10ML Vial SC SCH (07:30)
--- NOTE | 2025-04-25 16:44 | NUR ---
EOS: CHANGES FROM ASSUMPTION OF CARE ARE, MINIMAL BEATS OF VTACH LESS THAN 3-4 BEATS AND VERY INFREQUENT, STILL HAVING OCCASSIONAL PVC'S , MANY FAMILY VISITORS, REAMINS ALERT AND ORIENTED, METOPROLOL GIVEN PER CARDIOLOGY AND LOW HR OF 53 NO SIGNIFICANT CHANGES, RESUMING HOME MEDS TOMORROW. IMPROVING CHEST SORENESS, NO NEEDED PAIN MEDICATIONS FOR THIS RN. NO ACUTE CONCERNS NOTED AT THIS TIME. PLAN OF CARE CONTINUES.
[2025-04-26 00:10] VITALS: BP 118/73
[2025-04-26 04:38] VITALS: BP 137/82
[2025-04-26 04:40] LABS: BASOPHILS ABSOLUTE AUTO 0.05 K/mm3 (0.00-0.23); BASOPHILS PERCENT AUTO 1 % (0-2); EOSINOPHILS ABSOLUTE AUTO 0.10 K/mm3 (0.00-0.68); EOSINOPHILS PERCENT AUTO 1 % (0-6); Hematocrit 34.8 % (33.0-51.0); Hemoglobin 11.9 g/dL (11.5-16.0); IMMATURE GRAN ABSOLUTE AUTO 0.02 K/mm3 (0.00-0.10); IMMATURE GRAN PERCENT AUTO 0 % (0-1); LYMPHOCYTES ABSOLUTE AUTO 2.24 K/mm3 (0.84-5.20); LYMPHOCYTES PERCENT AUTO 25 % (21-46); MONOCYTES ABSOLUTE AUTO 1.02 K/mm3 (0.16-1.47); MONOCYTES PERCENT AUTO 11 % (4-13); Mean Corpuscular HGB Conc 34.2 g/dL (31.5-36.5); Mean Corpuscular Volume 94 fL (80-100); NEUTROPHILS ABSOLUTE AUTO 5.66 K/mm3 (1.96-9.15); NEUTROPHILS PERCENT AUTO 62 % (41-73); NRBC ABSOLUTE 0.00 K/mm3 (0.00-0.02); NRBC Auto 0.0 /100 WBC (0.0-0.2); Platelet Count 201 K/mm3 (150-400); RDW Coefficient Variation 13.1 % (11.7-14.2); RDW Standard Deviation 44.5 fL (35.1-46.3)
[2025-04-26 05:04] LABS: Anion Gap 9.0 mmol/L (3-11); Blood Urea Nitrogen 17.0 mg/dL (8-24); CO2, Blood 24.0 mmol/L (21-32); Calcium, Blood 8.5 mg/dL (8.5-10.1); Chloride, Blood 105.0 mmol/L (98-108); Creatinine, Blood 0.8 mg/dL (0.40-1.00); Glucose, Blood 113.0 mg/dL (70-99); Potassium, Blood 4.1 mmol/L (3.5-5.5); Sodium, Blood 134.0 mmol/L (136-145)
--- NOTE | 2025-04-26 06:36 | NUR ---
SHIFT SUMMERY PT HAS BEEN ALERT AND ORIENTED X4, AFEBRILE. SHE HAS HAD NO COMPLAINTS OF PAIN OR DISCOMFORT OVERNIGHT. 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 BP HAS BEEN WNL. SHE IS ON ROOM AIR W/OXYGEN SAT >94%. NO ACUTE CHANGES/COMPLAINTS OVERNIGHT.
[2025-04-26 07:26] VITALS: BP 130/72
[2025-04-26] MEDS ORDERED: Folic Acid 1 MG TAB PO SCH (09:00)
[2025-04-26] MEDS ORDERED: Enoxaparin 40 MG/0.4 ML SYR SC SCH (09:00)
[2025-04-26] MEDS ORDERED: PANT40 PO (10:43)
[2025-04-26] MEDS ORDERED: Crestor40 MG PO (10:44)
[2025-04-26] MEDS ORDERED: TICA90TA PO (10:45)
[2025-04-26 11:38] VITALS: BP 110/80
--- NOTE | 2025-04-26 12:33 | NUR ---
DISCHARGE PT HAS BEEN ALERT AND ORIENTED, DENIES CHEST PAIN, HAS BEEN UP TO THE CHAIR AND TO THE SHOWER AND TOLERATED WELL. R RADIAL SITE IS C/D/I, SOFT, NO HEMATOMA. DR. SWANSON AND DR. PARNELL CAME BY AND GAVE OK TO DISCHARGE. DISCHARGE INSTRUCTIONS REVIEWED WITH PT INCLUDING ACTIVITY RESTRICTIONS, FOLLOW UP APPOINTMENTS, AND NEW MEDICATIONS. PT DISCHARGED WITH HER SISTER VIA PRIVATE VEHICLE.
== END 2025-04-26 12:26 | disposition home or self-care (01) | DRG 322 ==
LOC: ER 15:21 → ICUE 15:34
PROVIDERS: Emergency Medicine; Family Medicine; ADMIT Internal Medicine Interventional Cardiology
PROC: 027135Z Dilation of Coronary Artery, Two Arteries with Two Drug-eluting Intraluminal Devices, Percutaneous Approach (ICD-10-PCS; principal; 2025-04-24)
PROC: 4A023N8 Measurement of Cardiac Sampling and Pressure, Bilateral, Percutaneous Approach (ICD-10-PCS; 2025-04-24)
PROC: B2111ZZ Fluoroscopy of Multiple Coronary Arteries using Low Osmolar Contrast (ICD-10-PCS; 2025-04-24)
PROC: 3E033XZ Introduction of Vasopressor into Peripheral Vein, Percutaneous Approach (ICD-10-PCS; 2025-04-24)
DX: I21.19 ST elevation (STEMI) myocardial infarction involving other coronary artery of inferior wall (principal); E87.1 Hypo-osmolality and hyponatremia; I47.20 Ventricular tachycardia, unspecified; I10 Essential (primary) hypertension; E78.5 Hyperlipidemia, unspecified; M19.90 Unspecified osteoarthritis, unspecified site; R73.03 Prediabetes; E87.6 Hypokalemia; D72.829 Elevated white blood cell count, unspecified; Z90.49 Acquired absence of other specified parts of digestive tract; Z90.710 Acquired absence of both cervix and uterus; Z98.890 Other specified postprocedural states; Z82.49 Family history of ischemic heart disease and other diseases of the circulatory system; Z88.1 Allergy status to other antibiotic agents; Z88.5 Allergy status to narcotic agent; Z88.0 Allergy status to penicillin; Z91.010 Allergy to peanuts
CPT/HCPCS: 36415; 71045; 76937; 80047; 80048; 80053; 80061; 82947; 83735; 84484; 85014; 85025; 85347; 86850; 86900; 86901; 93005; 93010; 93306; 93454; 99152; 99153; 99285-25; A9270; C1725; C1769; C1874; C1887; C1894; C9600; C9601; C9606; J0153; J0461; J1644; J1650; J2250; J2405; J3010; J3246; J3475; J7030; J7050; Q9967

== ENCOUNTER → 2025-04-24 | Outpatient (CLI) | payer MEDICARE, OTHER ==
[~2025-04-24] MED LIST changes: +Crestor40 MG PO; +PANT40 PO; +TICA90TA PO
[2025-04-24 15:12] LABS: BASOPHILS ABSOLUTE AUTO 0.06 K/mm3 (0.00-0.23); BASOPHILS PERCENT AUTO 1 % (0-2); EOSINOPHILS ABSOLUTE AUTO 0.06 K/mm3 (0.00-0.68); EOSINOPHILS PERCENT AUTO 1 % (0-6); Hematocrit 39.4 % (33.0-51.0); Hemoglobin 13.5 g/dL (11.5-16.0); IMMATURE GRAN ABSOLUTE AUTO 0.04 K/mm3 (0.00-0.10); IMMATURE GRAN PERCENT AUTO 0 % (0-1); LYMPHOCYTES ABSOLUTE AUTO 2.30 K/mm3 (0.84-5.20); LYMPHOCYTES PERCENT AUTO 19 % (21-46); MONOCYTES ABSOLUTE AUTO 0.67 K/mm3 (0.16-1.47); MONOCYTES PERCENT AUTO 6 % (4-13); Mean Corpuscular HGB Conc 34.3 g/dL (31.5-36.5); Mean Corpuscular Volume 91 fL (80-100); NEUTROPHILS ABSOLUTE AUTO 8.80 K/mm3 (1.96-9.15); NEUTROPHILS PERCENT AUTO 74 % (41-73); NRBC ABSOLUTE 0.00 K/mm3 (0.00-0.02); NRBC Auto 0.0 /100 WBC (0.0-0.2); Platelet Count 272 K/mm3 (150-400); RDW Coefficient Variation 12.6 % (11.7-14.2); RDW Standard Deviation 41.3 fL (35.1-46.3)
[2025-04-24 15:26] LABS: Alanine Aminotransfer (ALT/SGP 25.0 U/L (12-78); Albumin, Blood 4.0 g/dL (3.4-5.0); Albumin/Globulin Ratio 1.2 (0.8-1.8); Anion Gap 14.0 mmol/L (6-16); Aspartate Aminotrans (AST/SGOT 18.0 U/L (12-37); Bilirubin, Total 0.7 mg/dL (0.1-1.0); Blood Urea Nitrogen 28.0 mg/dL (8-24); CO2, Blood 29.0 mmol/L (21-32); Calcium, Blood 9.9 mg/dL (8.5-10.1); Chloride, Blood 103.0 mmol/L (98-108); Creatinine, Blood 1.14 mg/dL (0.40-1.00); Globulin, Blood 3.3 g/dL (2.2-4.0); Glucose, Blood 195.0 mg/dL (70-99); Potassium, Blood 3.6 mmol/L (3.5-5.5); Sodium, Blood 142.0 mmol/L (136-145); Total Protein, Blood 7.3 g/dL (6.4-8.2)
== END ==
LOC: LAB SHORT 15:03 → LAB 15:03
PROVIDERS: Family Medicine
DX: R07.9 Chest pain, unspecified (principal)
CPT/HCPCS: 80053; 84484; 85025

== ENCOUNTER → 2025-06-17 | Outpatient (CLI) | payer MEDICARE ==
[~2025-06-17] MED LIST changes: +Crestor40 MG PO; +PANT40 PO; +TICA90TA PO
== END ==
LOC: LAB 16:35 → LAB SHORT 16:35
DX: N39.0 Urinary tract infection, site not specified (principal)
CPT/HCPCS: 87077; 87086; 87186

== ENCOUNTER 2025-06-21 11:11 | Emergency (ER) | payer MEDICARE, OTHER ==
[~2025-06-21] VITALS: Ht 160 cm; Wt 67.6 kg
[2025-06-21 11:36] LABS: BASOPHILS ABSOLUTE AUTO 0.04 K/mm3 (0.00-0.23); BASOPHILS PERCENT AUTO 1 % (0-2); EOSINOPHILS ABSOLUTE AUTO 0.10 K/mm3 (0.00-0.68); EOSINOPHILS PERCENT AUTO 1 % (0-6); Hematocrit 36.4 % (33.0-51.0); Hemoglobin 12.4 g/dL (11.5-16.0); IMMATURE GRAN ABSOLUTE AUTO 0.02 K/mm3 (0.00-0.10); IMMATURE GRAN PERCENT AUTO 0 % (0-1); LYMPHOCYTES ABSOLUTE AUTO 1.61 K/mm3 (0.84-5.20); LYMPHOCYTES PERCENT AUTO 19 % (21-46); MONOCYTES ABSOLUTE AUTO 0.67 K/mm3 (0.16-1.47); MONOCYTES PERCENT AUTO 8 % (4-13); Mean Corpuscular HGB Conc 34.1 g/dL (31.5-36.5); Mean Corpuscular Volume 93 fL (80-100); NEUTROPHILS ABSOLUTE AUTO 6.18 K/mm3 (1.96-9.15); NEUTROPHILS PERCENT AUTO 72 % (41-73); NRBC ABSOLUTE 0.00 K/mm3 (0.00-0.02); NRBC Auto 0.0 /100 WBC (0.0-0.2); Platelet Count 233 K/mm3 (150-400); RDW Coefficient Variation 12.8 % (11.7-14.2); RDW Standard Deviation 42.8 fL (35.1-46.3)
[2025-06-21 11:59] LABS: Alanine Aminotransfer (ALT/SGP 48.0 U/L (12-78); Albumin, Blood 3.7 g/dL (3.4-5.0); Albumin/Globulin Ratio 1.2 (0.8-1.8); Anion Gap 8.0 mmol/L (3-11); Aspartate Aminotrans (AST/SGOT 28.0 U/L (12-37); Bilirubin, Total 0.6 mg/dL (0.1-1.0); Blood Urea Nitrogen 9.0 mg/dL (8-24); CO2, Blood 26.0 mmol/L (21-32); Calcium, Blood 8.9 mg/dL (8.5-10.1); Chloride, Blood 111.0 mmol/L (98-108); Creatinine, Blood 0.64 mg/dL (0.40-1.00); Globulin, Blood 3.0 g/dL (2.2-4.0); Glucose, Blood 107.0 mg/dL (70-99); Potassium, Blood 3.8 mmol/L (3.5-5.5); Sodium, Blood 141.0 mmol/L (136-145); Total Protein, Blood 6.7 g/dL (6.4-8.2)
[2025-06-21 14:00] VITALS: BP 143/71
== END 2025-06-21 14:17 | disposition home or self-care (01) ==
LOC: ER 11:11
PROVIDERS: Emergency Medicine
DX: R07.89 Other chest pain (principal); M62.838 Other muscle spasm; I10 Essential (primary) hypertension; E78.5 Hyperlipidemia, unspecified; Z90.49 Acquired absence of other specified parts of digestive tract; Z90.710 Acquired absence of both cervix and uterus; Z88.0 Allergy status to penicillin; Z88.1 Allergy status to other antibiotic agents; Z88.2 Allergy status to sulfonamides; Z88.8 Allergy status to other drugs, medicaments and biological substances; Z88.5 Allergy status to narcotic agent; Z79.82 Long term (current) use of aspirin; Z79.899 Other long term (current) drug therapy; M19.90 Unspecified osteoarthritis, unspecified site
CPT/HCPCS: 71046; 80053; 83690; 83880; 84484; 85025; 93005; 93010; 99284-25; A9270

== ENCOUNTER → 2025-06-29 | Outpatient (CLI) | payer MEDICARE, OTHER | LOC: LAB SHORT 16:34 → LAB 16:34 | DX: N39.0 Urinary tract infection, site not specified (principal) | CPT/HCPCS: 87077; 87086; 87186 ==

== ENCOUNTER → 2025-07-09 | Outpatient (CLI) | payer MEDICARE, OTHER | LOC: LAB SHORT 17:42 → LAB 17:42 | DX: R30.0 Dysuria (principal) | CPT/HCPCS: 87077; 87086; 87186 ==

== ENCOUNTER → 2025-08-17 | Outpatient (CLI) | payer MEDICARE, OTHER ==
[2025-08-17 16:31] LABS: BASOPHILS ABSOLUTE AUTO 0.04 K/mm3 (0.00-0.23); BASOPHILS PERCENT AUTO 1 % (0-2); EOSINOPHILS ABSOLUTE AUTO 0.08 K/mm3 (0.00-0.68); EOSINOPHILS PERCENT AUTO 2 % (0-6); Hematocrit 35.6 % (33.0-51.0); Hemoglobin 11.8 g/dL (11.5-16.0); IMMATURE GRAN ABSOLUTE AUTO 0.01 K/mm3 (0.00-0.10); IMMATURE GRAN PERCENT AUTO 0 % (0-1); LYMPHOCYTES ABSOLUTE AUTO 1.74 K/mm3 (0.84-5.20); LYMPHOCYTES PERCENT AUTO 39 % (21-46); MONOCYTES ABSOLUTE AUTO 0.39 K/mm3 (0.16-1.47); MONOCYTES PERCENT AUTO 9 % (4-13); Mean Corpuscular HGB Conc 33.1 g/dL (31.5-36.5); Mean Corpuscular Volume 95 fL (80-100); NEUTROPHILS ABSOLUTE AUTO 2.16 K/mm3 (1.96-9.15); NEUTROPHILS PERCENT AUTO 49 % (41-73); NRBC ABSOLUTE 0.00 K/mm3 (0.00-0.02); NRBC Auto 0.0 /100 WBC (0.0-0.2); Platelet Count 243 K/mm3 (150-400); RDW Coefficient Variation 14.6 % (11.7-14.2); RDW Standard Deviation 49.1 fL (35.1-46.3)
[2025-08-17 16:48] LABS: Alanine Aminotransfer (ALT/SGP 114.0 U/L (12-78); Albumin, Blood 3.8 g/dL (3.4-5.0); Albumin/Globulin Ratio 1.2 (0.8-1.8); Anion Gap 11.0 mmol/L (3-11); Aspartate Aminotrans (AST/SGOT 51.0 U/L (12-37); Bilirubin, Total 0.6 mg/dL (0.1-1.0); Blood Urea Nitrogen 18.0 mg/dL (8-24); CO2, Blood 29.0 mmol/L (21-32); Calcium, Blood 8.8 mg/dL (8.5-10.1); Chloride, Blood 105.0 mmol/L (98-108); Creatinine, Blood 0.78 mg/dL (0.40-1.00); Globulin, Blood 3.2 g/dL (2.2-4.0); Glucose, Blood 101.0 mg/dL (70-99); Potassium, Blood 3.7 mmol/L (3.5-5.5); Sodium, Blood 141.0 mmol/L (136-145); Thyroid Stimulating Hormone 0.963 uIU/mL (0.360-4.800); Total Protein, Blood 7.0 g/dL (6.4-8.2)
== END ==
LOC: LAB SHORT 16:26 → LAB 16:26
PROVIDERS: Student in an Organized Health Care Education/Training Program
DX: R53.83 Other fatigue (principal)
CPT/HCPCS: 80053; 84443; 85025